=== PATIENT | male | born 1965 | race Caucasian/White ===

== ENCOUNTER 2017-07-02 09:30 | Inpatient (IN) | payer BC, OTHER ==
[2017-06-26 16:17] LABS: BASOPHILS % (AUTO) 0.7 % (0-1); EOSINOPHILS # (AUTO) 0.1 X10'3 (0-0.9); EOSINOPHILS % (AUTO) 2.3 % (0-6); LYMPHOCYTES % (AUTO) 33.9 % (21-51); MEAN CORPUSCULAR HEMOGLOBIN 32.5 PG (27.0-31.0); MEAN CORPUSCULAR HGB CONC 34.5 % (33.0-36.5); MEAN CORPUSCULAR VOLUME 94.1 FL (78-98); MEAN PLATELET VOLUME 8.2 FL (7.4-10.4); MONOCYTES # (AUTO) 0.7 X10'3 (0-0.9); MONOCYTES % (AUTO) 11.3 % (2-12); NEUTROPHILS % (AUTO) 51.8 % (42-75); PRE OP HEMATOCRIT 45.5 % (42.0-52.0); PRE OP HEMOGLOBIN 15.7 g/dL (14.0-17.9); PRE OP PLATELET COUNT 288 X10'3 (140-440); RED BLOOD COUNT 4.84 X10'6 (4.70-6.10); RED CELL DISTRIBUTION WIDTH 13.2 % (11.5-14.5)
[2017-06-26 16:17] LABS: CLARITY,URINE CLEAR (Clear); COLOR,URINE YELLOW (Yellow); GLUCOSE, URINE NEGATIVE (Neg); KETONES,URINE NEGATIVE (Neg); LEUKOCYTE ESTERASE ,URINE NEGATIVE (Neg); NITRITES, URINE NEGATIVE (Neg); OCCULT BLOOD,URINE TRACE-INTACT (Neg); PROTEIN,URINE NEGATIVE (Neg); UA COLLECTION TYPE VOIDED; UROBILINOGEN,URINE 0.2 E.U/dL (0.2-1.0)
[2017-06-26 16:24] LABS: BACTERIA,URINE NONE SEEN /HPF (Neg); RBC,URINE 0-2 /HPF (0-2); SQUAMOUS EPITHELIAL CELL,UR NONE SEEN /LPF (FEW); WBC,URINE NONE SEEN /HPF (0-4)
[2017-06-26 16:32] LABS: ALBUMIN 4.3 G/DL (3.4-5.0); ALBUMIN/GLOBULIN RATIO 1.3 (1.1-1.5); ALKALINE PHOSPHATASE 65 IU/L (46-116); BLOOD UREA NITROGEN 16 MG/DL (7-18); BUN/CREATININE RATIO 17.8 (5.4-32.0); CHLORIDE 102 MMOL/L (99-107); PRE OP ALT 49 U/L (30-65); PRE OP ANION GAP 8 (8-16); PRE OP AST 22 U/L (10-37); PRE OP BILIRUB, TOTAL 0.4 MG/DL (0.0-1.0); PRE OP GLUCOSE 97 MG/DL (70-104); PRE OP POTASSIUM 4.1 MMOL/L (3.4-5.1); PRE OP SODIUM 138 MMOL/L (135-145); TOTAL CARBON DIOXIDE 28.4 MMOL/L (24-32); TOTAL PROTEIN 7.5 G/DL (6.4-8.2); eGFR 88 ML/MIN
[2017-06-26 16:47] LABS: PRE OP INR 0.9 INR; PRE OP PROTIME 9.7 SECONDS (9.0-12.0)
[~2017-07-02] VITALS: Ht 190.5 cm; Wt 127.8 kg
[2017-07-02] VITALS (30 sets, daily range): BP systolic 102–151; BP diastolic 40–91
[~2017-07-02 09:30] MED LIST: ASPI81TA46 PO; ATOR40TA72 PO; DOCUMENT DATE & TIME OF BETA-BLOCKER PO ONE; DOXY40CP4 PO; LISI1TAB11 PO; METO-395 PO; acetaminophen 325mg tablet PO ONE; cefazolin/dext.iso 2gm/50ml 50 ML IV ONE; celeCOXIB 100mg capsule PO ONE; famotidine 20mg tablet PO ONE; gabapentin 300mg capsule PO ONE; metoclopramide 5 mg/ml inj IV ONE; oxyCODONE SR 10mg (sust. release) tab PO ONE; ringers solution, lacted 1,000 ML IV SCH; tranexamic acid inj. 1,000 MG in normal saline 100ml IV soln 90 ML IV ONE; vancomycin inj 1,500 MG in normal saline 300ml IV soln IV ONE
[2017-07-02] MEDS ORDERED: metoclopramide 10mg tablet PO ONE (10:04)
[2017-07-02] MEDS ORDERED: cloNIDine hcl/PF 100mcg/ml inj ONE (11:30)
[2017-07-02] MEDS ORDERED: ketorolac trometh. 30mg/ml inj. ONE (11:30)
[2017-07-02] MEDS ORDERED: vancomycin 1,000mg inj ONE (11:31)
[2017-07-02] MEDS ORDERED: ROPIVAcaine 0.5% (5mg/ml) 30ml vial ONE ×2 (11:31→11:32)
[2017-07-02] MEDS ORDERED: tetracaine 1% (10mg/ml) pres. free inj. ONE (11:32)
[2017-07-02] MEDS ORDERED: epiNEPHrine 1 mg/ml inj ONE (11:33)
[2017-07-02] MEDS ORDERED: acetaminophen 325mg tablet PO PRN (11:35)
[2017-07-02] MEDS ORDERED: diphenhydrAMINE 25mg capsule PO PRN ×2 (11:35)
[2017-07-02] MEDS ORDERED: HYDROmorphone inj. 0.5 MG/0.5 ML DISP.SYRIN IV PRN ×2 (11:35)
[2017-07-02] MEDS ORDERED: magnesium hydroxide 30ml (MOM) UD suspension PO PRN (11:35)
[2017-07-02] MEDS ORDERED: ondansetron/PF 4mg/2ml inj IV PRN ×3 (11:35→12:55)
[2017-07-02] MEDS ORDERED: bisacodyl 10mg suppository rectal RC PRN (11:35)
[2017-07-02] MEDS ORDERED: MORPHINE SULFATE/PF 0.5 MG/ML 10ML AMPUL ONE (11:45)
[2017-07-02] MEDS ORDERED: MIDAZolam 5mg/5ml vial ONE (11:45)
[2017-07-02] MEDS ORDERED: fentaNYL /PF 50mcg/ml 5ml ampule ONE (11:46)
[2017-07-02] MEDS ORDERED: dexamethasone sod phosphate 4mg/ml inj. ONE (11:47)
[2017-07-02] MEDS ORDERED: propofol inj 20 ML IV ONE (12:11)
[2017-07-02] MEDS ORDERED: ringers solution, lacted 1,000 ML IV SCH (12:52)
[2017-07-02] MEDS ORDERED: morphine 2 MG/ML inj. syringe IV PRN ×2 (12:55)
[2017-07-02] MEDS ORDERED: diphenhydrAMINE 50 mg/ml inj IV PRN (12:55)
[2017-07-02] MEDS ORDERED: enalaprilat dihydrate 2.5mg/2ml vial IV PRN (12:55)
[2017-07-02] MEDS ORDERED: hydrALAZINE 20mg/ml inj. IV PRN (12:55)
[2017-07-02] MEDS ORDERED: meperidine/PF 50mg/ml syringe IV PRN ×2 (12:55)
[2017-07-02] MEDS: cefazolin/dext.iso 2gm/50ml 50 ML IV SCH (18:55)
[2017-07-02] MEDS: potassium cl 20mEq in 1/2 NS 1,000 ML IV SCH (19:00)
[2017-07-02] MEDS: ascorbic acid 500mg tablet PO SCH (20:00)
[2017-07-02] MEDS: oxyCODONE/APAP 10/325mg tablet PO SCH (20:00)
[2017-07-02] MEDS: gabapentin 300mg capsule PO SCH (20:37)
[2017-07-02] MEDS ORDERED: metoprolol succinate 25mg (24-HOUR) SR. Tablet PO SCH (21:00)
[2017-07-02] MEDS ORDERED: atorvastatin 20mg tablet PO SCH (21:00)
[2017-07-02] MEDS ORDERED: sennosides 8.6mg tablet PO SCH (21:00)
[2017-07-02] MEDS ORDERED: lisinopril 20mg tablet PO SCH (21:00)
[2017-07-02] MEDS ORDERED: HYDROchlorothiazide 12.5mg capsule PO SCH (21:00)
[2017-07-03] MEDS: cefazolin/dext.iso 2gm/50ml 50 ML IV SCH (00:09)
[2017-07-03 02:00] VITALS: BP 125/66
[2017-07-03] MEDS: oxyCODONE/APAP 10/325mg tablet PO SCH ×2 (04:00)
[2017-07-03] MEDS: potassium cl 20mEq in 1/2 NS 1,000 ML IV SCH (04:26)
[2017-07-03] MEDS: oxyCODONE/APAP 10/325mg tablet PO PRN ×2 (05:08→17:03)
[2017-07-03] MEDS ORDERED: oxyCODONE/APAP 10/325mg tablet PO PRN (05:15)
[2017-07-03 05:45] LABS: BASOPHILS % (AUTO) 0.1 % (0-1); EOSINOPHILS # (AUTO) 0.2 X10'3 (0-0.9); EOSINOPHILS % (AUTO) 1.8 % (0-6); HEMATOCRIT 36.8 % (42.0-52.0); HEMOGLOBIN 12.6 g/dl (14.0-17.9); LYMPHOCYTES # (AUTO) 0.8 X10'3 (1.1-4.8); LYMPHOCYTES % (AUTO) 5.7 % (21-51); MEAN CORPUSCULAR HEMOGLOBIN 32.5 PG (27.0-31.0); MEAN CORPUSCULAR HGB CONC 34.4 % (33.0-36.5); MEAN CORPUSCULAR VOLUME 94.7 FL (78-98); MEAN PLATELET VOLUME 7.8 FL (7.4-10.4); MONOCYTES # (AUTO) 0.9 X10'3 (0-0.9); MONOCYTES % (AUTO) 6.7 % (2-12); NEUTROPHILS # (AUTO) 11.6 X10'3 (1.8-7.7); NEUTROPHILS % (AUTO) 85.7 % (42-75); PLATELET COUNT 225 X10'3 (140-440); RED BLOOD COUNT 3.89 X10'6 (4.70-6.10); RED CELL DISTRIBUTION WIDTH 13.1 % (11.5-14.5); WHITE BLOOD COUNT 13.5 X10'3 (4.5-11.0)
[2017-07-03 06:00] LABS: ANION GAP 8 (8-16); CHLORIDE 105 MMOL/L (99-107); POTASSIUM 4.4 MMOL/L (3.5-5.1); SODIUM 140 MMOL/L (135-145); TOTAL CARBON DIOXIDE 26.7 MMOL/L (24-32)
[2017-07-03 07:30] VITALS: BP 119/65
[2017-07-03] MEDS ORDERED: multivitamins, therapeutics tablet PO SCH (08:00)
[2017-07-03] MEDS ORDERED: aspirin 325mg tablet PO SCH (08:30)
[2017-07-03] MEDS: gabapentin 300mg capsule PO SCH ×2 (09:14→12:54)
[2017-07-03] MEDS: ascorbic acid 500mg tablet PO SCH (09:14)
[2017-07-03 10:12] VITALS: BP 136/77
[2017-07-03] MEDS ORDERED: CELE200C PO (13:24)
[2017-07-03] MEDS ORDERED: ASPI-1 PO (13:24)
[2017-07-03] MEDS ORDERED: GABA300C PO (13:24)
== END 2017-07-03 17:10 | disposition home or self-care (01) | DRG 470 ==
LOC: PAS IN 09:30 → EDSTATUS 11:30 → ORTHO 4S 17:45
PROVIDERS: ADMIT Orthopaedic Surgery; ATTEND Orthopaedic Surgery
PROC: 3E0T3BZ Introduction of Anesthetic Agent into Peripheral Nerves and Plexi, Percutaneous Approach (ICD-10-PCS; 2017-07-02)
PROC: 0SRC0J9 Replacement of Right Knee Joint with Synthetic Substitute, Cemented, Open Approach (ICD-10-PCS; principal; 2017-07-02 11:43)
DX: M17.11 Unilateral primary osteoarthritis, right knee (principal); D62 Acute posthemorrhagic anemia; E78.5 Hyperlipidemia, unspecified; E66.9 Obesity, unspecified; I10 Essential (primary) hypertension; M17.12 Unilateral primary osteoarthritis, left knee; Z79.899 Other long term (current) drug therapy; Z68.35 Body mass index [BMI] 35.0-35.9, adult
CPT/HCPCS: 36415; 71046; 73560; 80051; 80053; 81001; 85025; 85610; 85730; 86885; 86900; 86901; 87070; 93005; 97116; 97162; 97530; A6449; A6455; A7000; C1713; C1758; C1776; J0171; J0690; J0735; J1100; J1885; J2250; J2274; J2405; J2704; J2795; J3010; J3370; J7030; J7120; J8597

== ENCOUNTER 2019-12-02 05:33 | Observation (INO) | payer OTHER ==
[2019-11-26 13:15] LABS: BASOPHILS % (AUTO) 0.8 % (0-1); EOSINOPHILS # (AUTO) 0.2 X10'3 (0-0.9); EOSINOPHILS % (AUTO) 3.2 % (0-6); LYMPHOCYTES # (AUTO) 1.6 X10'3 (1.1-4.8); LYMPHOCYTES % (AUTO) 27.4 % (21-51); MEAN CORPUSCULAR HEMOGLOBIN 32.6 PG (27.0-31.0); MEAN CORPUSCULAR HGB CONC 33.9 g/dL (33.0-36.5); MEAN CORPUSCULAR VOLUME 96.1 FL (78-98); MEAN PLATELET VOLUME 8.7 FL (7.4-10.4); MONOCYTES # (AUTO) 0.5 X10'3 (0-0.9); MONOCYTES % (AUTO) 8.8 % (2-12); NEUTROPHILS # (AUTO) 3.5 X10'3 (1.8-7.7); NEUTROPHILS % (AUTO) 59.8 % (42-75); PRE OP HEMATOCRIT 45.8 % (42.0-52.0); PRE OP HEMOGLOBIN 15.5 g/dL (14.0-17.9); PRE OP PLATELET COUNT 261 X10'3 (140-440); RED BLOOD COUNT 4.77 X10'6 (4.70-6.10); RED CELL DISTRIBUTION WIDTH 13.2 % (11.5-14.5)
[2019-11-26 13:22] LABS: ALBUMIN 3.8 G/DL (3.4-5.0); ALBUMIN/GLOBULIN RATIO 1.1 (1.1-1.5); ALKALINE PHOSPHATASE 61 IU/L (46-116); BLOOD UREA NITROGEN 15 MG/DL (7-18); BUN/CREATININE RATIO 17.9 (5.4-32.0); CALCIUM 8.8 MG/DL (8.5-10.1); CHLORIDE 103 MMOL/L (99-107); CREATININE 0.84 MG/DL (0.60-1.10); PRE OP ALT 49 U/L (30-65); PRE OP ANION GAP 8 (8-16); PRE OP AST 27 U/L (10-37); PRE OP BILIRUB, TOTAL 0.3 MG/DL (0.0-1.0); PRE OP GLUCOSE 107 MG/DL (70-104); PRE OP POTASSIUM 4.1 MMOL/L (3.4-5.1); PRE OP SODIUM 137 MMOL/L (135-145); TOTAL PROTEIN 7.3 G/DL (6.4-8.2); eGFR > 90 ML/MIN
[2019-12-02] VITALS (17 sets, daily range): BP systolic 107–151; BP diastolic 75–98
[~2019-12-02] VITALS: Ht 190.5 cm; Wt 134.5 kg
[~2019-12-02 05:33] MED LIST changes: -ASPI81TA46 PO; +CARV6.253 PO; -DOXY40CP4 PO; +ESCI20TA45 PO; -LISI1TAB11 PO; +LISI1TAB28 PO; +MELO-102 PO; -METO-395 PO; +ceFAZolin inj. 3,000 MG in normal saline 100ml IV soln 100 ML IV ONE; -cefazolin/dext.iso 2gm/50ml 50 ML IV ONE; +oxyCODONE SR 10mg (sust. release) tab -2 tabs (20mg) PO ONE; -oxyCODONE SR 10mg (sust. release) tab PO ONE; +tranexamic acid 1gm/0.7% sal. 100 ML IV ONE; -tranexamic acid inj. 1,000 MG in normal saline 100ml IV soln 90 ML IV ONE; +vancomycin 1,500 MG in NS 300ml IV soln IV ONE; -vancomycin inj 1,500 MG in normal saline 300ml IV soln IV ONE
[2019-12-02] MEDS ORDERED: CARV6.253 PO (06:32)
[2019-12-02] MEDS ORDERED: acetaminophen 325mg tablet PO PRN (07:00)
[2019-12-02] MEDS ORDERED: HYDROmorphone 1 mg/ml syringe IV PRN (07:00)
[2019-12-02] MEDS ORDERED: oxyCODONE/APAP 10/325mg tablet PO PRN ×2 (07:00)
[2019-12-02] MEDS ORDERED: diphenhydrAMINE 25mg capsule PO PRN ×2 (07:00)
[2019-12-02] MEDS ORDERED: magnesium hydroxide 30ml (MOM) UD suspension PO PRN (07:00)
[2019-12-02] MEDS ORDERED: ondansetron/PF 4mg/2ml inj IV PRN ×2 (07:00→07:55)
[2019-12-02] MEDS ORDERED: HYDROmorphone inj. 0.5 MG/0.5 ML DISP.SYRIN IV PRN (07:00)
[2019-12-02] MEDS ORDERED: bisacodyl 10mg suppository rectal RC PRN (07:00)
[2019-12-02] MEDS ORDERED: vancomycin 1,000mg inj ONE (07:04)
[2019-12-02] MEDS ORDERED: cloNIDine hcl/PF 100mcg/ml inj ONE (07:04)
[2019-12-02] MEDS ORDERED: ketorolac trometh. 30mg/ml inj. ONE (07:04)
[2019-12-02] MEDS ORDERED: epiNEPHrine 1 mg/ml inj ONE (07:04)
[2019-12-02] MEDS ORDERED: ROPIVAcaine 0.5% (5mg/ml) 30ml vial ONE ×3 (07:04→08:54)
[2019-12-02] MEDS ORDERED: fentaNYL/PF 50MCG/1 ML 2ML syringe ONE (07:08)
[2019-12-02] MEDS ORDERED: MIDAZolam 5mg/5ml vial ONE (07:08)
[2019-12-02] MEDS ORDERED: morphine 4 MG/ML inj SYRINge IV PRN (07:55)
[2019-12-02] MEDS ORDERED: proCHLORperazine 10 MG/2 ml inj IV PRN (07:55)
[2019-12-02] MEDS ORDERED: morphine 2 MG/ML inj. syringe IV PRN (07:55)
[2019-12-02] MEDS ORDERED: ROPIVAcaine 0.2% (10 MG/5 ML) BOLUS INJECTION ADDCANAL PRN (07:55)
[2019-12-02] MEDS ORDERED: ROPIVAcaine 0.2%/PF PUMP/bolus 550 ML ADDCANAL SCH (07:55)
[2019-12-02] MEDS ORDERED: meperidine/PF 25mg/ml syringe IV PRN ×3 (07:55)
[2019-12-02] MEDS ORDERED: ringers solution, lacted 1,000 ML IV SCH (07:55)
[2019-12-02] MEDS ORDERED: LIDOcaine 1%/PF 5ML 10 MG/ML VIAL ONE (08:54)
[2019-12-02] MEDS ORDERED: LIDOcaine 2% (20mg/ml) 5ml vial ONE (08:54)
[2019-12-02] MEDS ORDERED: diphenhydrAMINE 50 mg/ml inj ONE (08:54)
[2019-12-02] MEDS ORDERED: propofol inj 40 ML IV ONE (08:54)
--- NOTE | 2019-12-02 10:06 | NUR ---
PATIENT TAKEN TO WITH ALL BELONGINGS AND HOOKED UP TO MONITORS IN ROOM AND REPORT GIVEN TO RN WHO HAS TAKEN OVER PATIENT CARE. BED LOW, CALL LIGHT IN REACH, VSS, DRESSINGS CDI. CINDY SANDERSON PRESENT TO ACCEPT CARE. Addendum: 12/02/19 at 1026 by Kvng Whalen - CINDY WHITE Amended: Links added.
[2019-12-02] MEDS: potassium cl 20mEq in 1/2 NS 1,000 ML IV SCH ×3 (11:05→23:00)
--- NOTE | 2019-12-02 11:48 | NUR ---
Bed zipper setter chainstitch on, patient denies needs, appears comfortable.
[2019-12-02] MEDS ORDERED: tranexamic acid 1gm/0.7% sal. 100 ML IV ONE (13:30)
[2019-12-02] MEDS: ceFAZolin 2gm in dextrose, iso 50 ML IV SCH (15:52)
[2019-12-02] MEDS ORDERED: ceFAZolin 2gm in dextrose, iso 50 ML IV SCH (16:00)
[2019-12-02] MEDS ORDERED: VANCOMYCIN 1,500MG inj. 1,500 MG in normal saline 500ml IV soln 300 ML IV SCH (18:00)
--- NOTE | 2019-12-02 18:15 | NUR ---
Patient in room [facility] 4016. I have received report from CINDY Rhodes and had the opportunity to ask questions and assume patient care.
[2019-12-02] MEDS: ascorbic acid 500mg tablet PO SCH (20:52)
[2019-12-02] MEDS: gabapentin 300mg capsule PO SCH (20:52)
[2019-12-02] MEDS ORDERED: sennosides 8.6mg tablet PO SCH (21:00)
[2019-12-02] MEDS ORDERED: lisinopril 20mg tablet PO SCH (21:00)
[2019-12-02] MEDS ORDERED: atorvastatin 20mg tablet PO SCH (21:00)
[2019-12-02] MEDS ORDERED: HYDROchlorothiazide 12.5mg capsule PO SCH (21:00)
[2019-12-03] MEDS: ceFAZolin 2gm in dextrose, iso 50 ML IV SCH (00:09)
[2019-12-03 02:00] VITALS: BP 137/96
[2019-12-03 06:00] VITALS: BP 168/93
--- NOTE | 2019-12-03 06:26 | NUR ---
Problems reprioritized. Patient report given, questions answered & plan of care reviewed with CINDY Rey.
[2019-12-03 06:55] LABS: BASOPHILS % (AUTO) 0.5 % (0-1); EOSINOPHILS # (AUTO) 0.1 X10'3 (0-0.9); EOSINOPHILS % (AUTO) 1.7 % (0-6); HEMOGLOBIN 14.3 g/dl (14.0-17.9); LYMPHOCYTES # (AUTO) 1.1 X10'3 (1.1-4.8); LYMPHOCYTES % (AUTO) 12.5 % (21-51); MEAN CORPUSCULAR HEMOGLOBIN 32.8 PG (27.0-31.0); MEAN CORPUSCULAR HGB CONC 34.2 g/dL (33.0-36.5); MEAN PLATELET VOLUME 8.6 FL (7.4-10.4); MONOCYTES # (AUTO) 0.9 X10'3 (0-0.9); MONOCYTES % (AUTO) 10.6 % (2-12); NEUTROPHILS # (AUTO) 6.4 X10'3 (1.8-7.7); NEUTROPHILS % (AUTO) 74.7 % (42-75); PLATELET COUNT 246 X10'3 (140-440); RED BLOOD COUNT 4.37 X10'6 (4.70-6.10); RED CELL DISTRIBUTION WIDTH 13.3 % (11.5-14.5); WHITE BLOOD COUNT 8.5 X10'3 (4.5-11.0)
[2019-12-03] MEDS: potassium cl 20mEq in 1/2 NS 1,000 ML IV SCH (07:00)
[2019-12-03 07:12] LABS: ANION GAP 8 (8-16); CHLORIDE 102 MMOL/L (99-107); POTASSIUM 4.2 MMOL/L (3.5-5.1); SODIUM 137 MMOL/L (135-145); TOTAL CARBON DIOXIDE 26.7 MMOL/L (24-32)
[2019-12-03] MEDS: gabapentin 300mg capsule PO SCH (07:42)
[2019-12-03] MEDS: ascorbic acid 500mg tablet PO SCH (07:43)
[2019-12-03] MEDS ORDERED: multivitamins, therapeutics tablet PO SCH (08:00)
[2019-12-03] MEDS ORDERED: aspirin 325mg tablet PO SCH (08:30)
[2019-12-03 10:00] VITALS: BP 142/93
--- NOTE | 2019-12-03 10:00 | NUR ---
Patient ready for discharge. PIV removed, cannula intact. Discharge instructions given to patient. Belongings gathered and sent home with patient. Patient has follow up scheduled with MD Addison and post op medications at home.
[2019-12-03] MEDS ORDERED: celeCOXIB 100mg capsule PO SCH (20:00)
== END 2019-12-03 10:00 | disposition home or self-care (01) ==
LOC: PAS 05:33 → PACU 07:00 → ORTHO 4S 10:35 → PAS 12-03 10:00
PROVIDERS: ADMIT Orthopaedic Surgery; ATTEND Orthopaedic Surgery
DX: Z03.818 Encounter for observation for suspected exposure to other biological agents ruled out (principal); M17.12 Unilateral primary osteoarthritis, left knee
CPT/HCPCS: 27447; 36415; 71046; 73560; 80051; 80053; 82948; 85025; 86885; 86900; 86901; 87081; 93005; 96365; 96366; 96367; 96375; 97110; 97116; 97161; A6454; C1713; C1776; G0378; J0171; J0690; J0735; J1200; J1885; J2001; J2250; J2405; J2704; J2765; J2795; J3010; J3370; J7040; J7120; U0003; A4215; A6449; A7000; J3480